=== PATIENT | male | born 1980 | race Caucasian/White ===

== ENCOUNTER 2016-06-16 02:33 | Emergency (ER) | payer OTHER ==
[~2016-06-16 02:33] MED LIST: AMOXICILLIN125 MG PO; ATACAND; BACTRIM DS TABL1 TA1 PO; CLEOCIN PO; DARVOCET-N 1001 TAB PO; DILANTIN PO; ELIMITE60 GM TOP; IBUPROFEN; KEFLEX500 MG PO; KETOPROFEN PO; LORTAB 5/500 TA1 TA1 PO; MEDROL4 MG/DOSE- PO; NO MEDICATIONS; ORUDIS75 M1 DOB; PHENERGAN25 M1 DOB; PROAIR HFA8.5 GM IH; ULTRAM PO; VIBRAMYCIN100 M1 DOB; VICODIN 5/500 T1 TAB PO; VOLTAREN75 MG PO; ZITHROMAX PO
[2016-08-03] MEDS ORDERED: SUBOXONE 12 MG1 EACH (18:00)
[2016-08-03] MEDS ORDERED: NEURONTIN300 MG (18:01)
[2016-08-03] MEDS ORDERED: PROZAC (18:01)
[2016-08-03] MEDS ORDERED: PHENERGAN (18:01)
[2016-08-03] MEDS ORDERED: REQUIP2 MG (18:01)
== END 2016-06-16 02:51 | disposition home or self-care (01) ==
LOC: SED 02:33
DX: R59.0 Localized enlarged lymph nodes (principal); Z88.0 Allergy status to penicillin; Z88.1 Allergy status to other antibiotic agents
CPT/HCPCS: 99282

== ENCOUNTER 2016-07-04 12:06 | Emergency (ER) | payer OTHER ==
--- NOTE | ~2016-07-04 | CR127 ---
[facility] A Service of [facility] RADIOLOGY TEXT RESULTS PATIENT: KATINA LUIS LOCATION: [facility] : [birth year] UNIT #: [id number] AGE: [address]: Lisy Campbell SEX: M ORDER DR: [id number] [address] [address] [id number] E MR#: [id number] Acc #: [id number] NAME: KATINA LUIS. : 1980 SEX: M STUDY DATE/TIME: UNIT: [facility] ROOM: STUDY DESCRIPTION: CR Foot Complete Min 3 View Rt Attending Physician: iLsy Campbell Pa-C Ordering Physician: Lisy Campbell Pa-C Primary Care Physician: Primary Care Physician No MEDICAL IMAGING REPORT This report is preliminary unless electronic signature is present EXAM Right foot 3 views 07/04/2016, 1145 hours HISTORY Pain, redness in the great toe of the right foot for 2 days. No reported injury. COMPARISON None FINDINGS AP, lateral and oblique views demonstrate overall normal bone density. There is no fracture or dislocation. There is spurring at the first metatarsal-phalangeal joint. There is mild soft tissue swelling at the interphalangeal joint of the toe. No erosive changes are seen. IMPRESSION 1. No fracture or dislocation. 2. Mild spurring at the first metatarsal-phalangeal joint. 3. Mild soft tissue swelling at the interphalangeal joint of the great toe. No joint space loss or erosive change is seen. Dictated by... Monique Norman M.D. THIS IS AN ELECTRONICALLY VERIFIED REPORT Monique Norman M.D. at 07/04/2016 6:58 PM SMM/to TD: 07/04/2016 16:34 JOB #: [id number] MEDICAL IMAGING REPORT [facility] A Service of [facility] RADIOLOGY TEXT RESULTS PATIENT: KATINA LUIS [id number] : [birth year] UNIT #: [id number] AGE: [address]: Lisy Campbell SEX: M ORDER DR: DEYSI
[2016-08-03] MEDS ORDERED: SUBOXONE 12 MG1 EACH (18:00)
[2016-08-03] MEDS ORDERED: PHENERGAN (18:01)
[2016-08-03] MEDS ORDERED: REQUIP2 MG (18:01)
[2016-08-03] MEDS ORDERED: PROZAC (18:01)
[2016-08-03] MEDS ORDERED: NEURONTIN300 MG (18:01)
== END 2016-07-04 12:18 | disposition home or self-care (01) ==
LOC: CFTX 12:06
DX: S90.31XA Contusion of right foot, initial encounter (principal); B19.20 Unspecified viral hepatitis C without hepatic coma; F41.9 Anxiety disorder, unspecified; F32.9 Major depressive disorder, single episode, unspecified; F17.210 Nicotine dependence, cigarettes, uncomplicated; Z88.0 Allergy status to penicillin; Z88.1 Allergy status to other antibiotic agents; Z88.8 Allergy status to other drugs, medicaments and biological substances; Z90.49 Acquired absence of other specified parts of digestive tract; Z90.89 Acquired absence of other organs; W23.0XXA Caught, crushed, jammed, or pinched between moving objects, initial encounter; Y92.009 Unspecified place in unspecified non-institutional (private) residence as the place of occurrence of the external cause
CPT/HCPCS: 73630; 99283

== ENCOUNTER 2016-07-15 10:50 | Emergency (ER) | payer OTHER ==
--- NOTE | ~2016-07-15 | CR63 ---
[facility] A Service of [facility] RADIOLOGY TEXT RESULTS PATIENT: KATINA LUIS LOCATION: [facility] : 80 UNIT #: [id number] AGE: [address]: Jorden Jones MD SEX: M ORDER DR: [id number] [facility] [address] [facility]. [place], [place] [address] [id number] E MR#: [id number] Acc #: [id number] NAME: KATINA LUIS. : 1980 SEX: M STUDY DATE/TIME: 07/15/2016 12:21 UNIT: [facility] ROOM: STUDY DESCRIPTION: CR Chest 2 View Attending Physician: Jorden Jones M.D. Ordering Physician: Jorden Jones M.D. Primary Care Physician: Primary Care Physician No MEDICAL IMAGING REPORT This report is preliminary unless electronic signature is present EXAM PA and lateral chest, 07/15/2016 HISTORY Cough and congestion for 1 week. FINDINGS PA and lateral examination of the chest upright shows a good expansion of the parenchyma with a normal distribution of the pulmonary vascularity. There is no indication of congestion, effusion, infiltrate, tumor, or nodular density. The pleural reflections and diaphragmatic contours are normal. The cardiac silhouette and mediastinal anatomy is within normal limits. IMPRESSION Normal chest. Dictated by... Jose Ramon Roque M.D. THIS IS AN ELECTRONICALLY VERIFIED REPORT Jose Ramon Roque M.D. at 07/16/2016 2:59 PM DIEGO/grealdine TD: 07/16/2016 01:33 JOB #: [id number] MEDICAL IMAGING REPORT Page 1 of 1 COPY
[2016-07-15 12:08] LABS: BASOPHIL% 0.6 % (0-2.5); EOSINOPHIL# 0.2 X10e3 (0-0.7); EOSINOPHIL% 3.4 % (0.0-7.0); HEMATOCRIT 41.7 % (38.0-50.0); HEMOGLOBIN 13.8 gm/dL (13.0-16.0); LYMPHOCYTE% 32.9 % (17.0-45.0); MEAN CELL VOLUME 89.6 FL (83-96); MEAN CORPUSCULAR HEMOGLOBIN 29.6 PG (28-34); MEAN PLATELET VOLUME 8.8 FL (6.5-11.5); MONOCYTE# 0.5 X10e3 (0-1.0); MONOCYTE% 8.3 % (3.0-12.0); NEUTROPHIL# 3.3 X10e3 (1.5-7.1); NEUTROPHIL% 54.8 % (40-75); PLATELET COUNT 171 X10e3 (140-420); RED BLOOD COUNT 4.65 X10e (3.90-5.60); RED CELL DISTRIBUTION WIDTH 12.9 % (11.0-15.5)
[2016-07-15 12:11] LABS: URINE SOURCE CLEAN CATCH
[2016-07-15 12:16] LABS: DIFF IND NO
[2016-07-15 12:18] LABS: URINE APPEARANCE CLEAR; URINE BILIRUBIN NEG (NEG); URINE BLOOD NEG (NEG); URINE COLOR YELLOW; URINE GLUCOSE NEG (NEG); URINE KETONE NEG (NEG); URINE LEUKOCYTE ESTERASE NEG (NEG); URINE NITRATE NEG (NEG); URINE PH 6.5 (5-8); URINE PROTEIN NEG (NEG); URINE SPECIFIC GRAVITY 1.008 (1.003-1.035); URINE UROBILINOGEN 0.2 MG/DL (NEG)
[2016-07-15 12:21] LABS: INFLUENZA A NEG (NEG); INFLUENZA B NEG (NEG)
[2016-07-15 12:26] LABS: CULTURE INDICATED? NO
[2016-07-15 12:45] LABS: ALBUMIN SERUM 3.9 g/dL (3.5-5.0); BILIRUBIN, DIRECT 0.1 mg/dL (0.0-0.2); BILIRUBIN,INDIRECT 0.6 mg/dL (0.0-0.9); BILIRUBIN,TOTAL 0.7 mg/dL (0.2-2.0); BUN/CREATININE RATIO 14.28; CALCIUM SERUM 8.7 mg/dL (8.4-10.2); CREATININE SERUM 0.7 mg/dL (0.6-1.4); GLOM FILT RATE Estimated 121.5 mL/min (>60); POTASSIUM 4.2 mmol/L (3.5-5.1)
[2016-08-03] MEDS ORDERED: SUBOXONE 12 MG1 EACH (18:00)
[2016-08-03] MEDS ORDERED: NEURONTIN300 MG (18:01)
[2016-08-03] MEDS ORDERED: PHENERGAN (18:01)
[2016-08-03] MEDS ORDERED: PROZAC (18:01)
[2016-08-03] MEDS ORDERED: REQUIP2 MG (18:01)
== END 2016-07-15 13:15 | disposition home or self-care (01) ==
LOC: CED 10:50
PROVIDERS: Emergency Medicine
DX: J18.9 Pneumonia, unspecified organism (principal); R10.9 Unspecified abdominal pain; F17.200 Nicotine dependence, unspecified, uncomplicated; Z88.0 Allergy status to penicillin; Z88.1 Allergy status to other antibiotic agents
CPT/HCPCS: 36415; 71020; 80048; 80076; 81003; 83690; 85025; 87804; 96361; 96372; 96374; 99284; J0500; J2405

== ENCOUNTER 2016-08-03 18:26 | Emergency (ER) | payer OTHER ==
--- NOTE | ~2016-08-03 | CR63 ---
[facility] A Service of [facility] RADIOLOGY TEXT RESULTS PATIENT: KATINA LUIS LOCATION: SED : 80 UNIT #: [id number] AGE: [address]: Julius Panda SEX: M ORDER DR: [id number] [place] [address] [id number] E MR#: [id number] Acc #: [id number] NAME: KATINA ULIS. : 1980 SEX: M STUDY DATE/TIME: 08/03/2016 18:27 UNIT: SED ROOM: STUDY DESCRIPTION: CR Chest 2 View Attending Physician: Julius Panda P.A.-C. Referring Physician: Julius Panda P.A.-C. Ordering Physician: Julius Panda P.A.-C. Primary Care Physician: No Primary Care Physician MEDICAL IMAGING REPORT This report is preliminary unless electronic signature is present. EXAM Chest x-ray, 08/03/2016. HISTORY 36-year-old male in the ED complaining of 1-week history of shortness of air, cough and chest pain. He reports a history of pneumonia about 1 month ago. TECHNIQUE 2-view upright chest series. FINDINGS Examination is negative. The lungs are expanded and clear. Heart size and pulmonary vascularity are normal. No visible pulmonary infiltrate or pleural effusion. No change since 07/15/2016. IMPRESSION Negative chest. No change since 07/15/2016. Dictated by... Jhony Wright M.D. THIS IS AN ELECTRONICALLY VERIFIED REPORT Jhony Wright M.D. at 08/06/2016 5:58 AM MARTYW/christina TD: 08/04/2016 12:34 JOB #: [id number] MEDICAL IMAGING REPORT Page 1 of 1
--- NOTE | ~2016-08-03 | EKG ---
PATIENT: KATINA LUIS UNIT #: [id number] Ventricular Rate: 85 BPM Atrial Rate: 85 BPM P-R Interval: 162 ms QRS Duration: 86 ms Q-T Interval: 352 ms QTC Calculation(Bezet): 418 ms P [place]: 65 degrees Calculated R [place]: 73 degrees Calculated T [place]: 65 degrees Diagnosis Line: Normal sinus rhythm Diagnosis Line: Minimal voltage criteria for LVH, may be normal Diagnosis Line: variant Diagnosis Line: Borderline ECG Diagnosis Line: When compared with ECG of 13-NOV-2011 10:34, Diagnosis Line: No significant change was found Diagnosis Line: Confirmed by LENA ABDI MD ([id number]) on Diagnosis Line: 08/08/2016 5:38:22 AM INTERPRETING FEDERICO MONET
[~2016-08-03 18:26] MED LIST changes: +NEURONTIN300 MG; +PHENERGAN; +PROZAC; +REQUIP2 MG; +SUBOXONE 12 MG1 EACH
[2016-08-03] MEDS ORDERED: ALBUTEROL17 GM INH (19:30)
[2016-08-03] MEDS ORDERED: TRAZODONE HCL100 MG PO (19:30)
[2016-08-03] MEDS ORDERED: PREDNISONE50 MG PO (19:31)
== END 2016-08-03 19:33 | disposition home or self-care (01) ==
LOC: SED 18:26
DX: J20.9 Acute bronchitis, unspecified (principal); F41.9 Anxiety disorder, unspecified; Z90.49 Acquired absence of other specified parts of digestive tract; F17.210 Nicotine dependence, cigarettes, uncomplicated
CPT/HCPCS: 71020; 93005; 99284